=== PATIENT | male | born 1970 | race African-American/Black ===

== ENCOUNTER 2017-04-04 23:47 | Emergency (ER) | payer MEDICAID ==
[~2017-04-04] VITALS: Ht 160 cm; Wt 93.0 kg
[~2017-04-04 23:47] MED LIST: AMLO10TA80; ATEN50TA PO; BENA40TA3 PO; HYDR25TA PO
[2017-04-05] MEDS ORDERED: ACETAMINOPHEN 500MG TABLET PO ONE (06:15)
[2017-04-05] MEDS ORDERED: IBUPROFEN 400MG TABLET PO ONE (06:15)
[2017-04-05 09:15] VITALS: BP 153/89
== END 2017-04-05 10:20 | disposition home or self-care (01) ==
LOC: ER 23:47
DX: M25.431 Effusion, right wrist (principal); I10 Essential (primary) hypertension
CPT/HCPCS: 73130; 76881; 82962; 93971; 99284; Z7610

== ENCOUNTER 2017-06-12 22:48 | Emergency (ER) | payer MEDICAID ==
[~2017-06-12] VITALS: Ht 160 cm; Wt 92.4 kg
[2017-06-13] MEDS ORDERED: METHOCARBAMOL 500MG TABLET PO ONE (00:15)
[2017-06-13] MEDS ORDERED: KETOROLAC 60MG/2ML VIAL IM ONE (00:15)
[2017-06-13 00:41] LABS: CLARITY URINE CLEAR (CLEAR); COLOR URINE YELLOW (YELLOW); KETONES URINE NEGATIVE (NEGATIVE); LEUKOCYTE ESTERASE URINE NEGATIVE (NEGATIVE); NITRITE URINE NEGATIVE (NEGATIVE); OCCULT BLOOD URINE NEGATIVE (NEGATIVE); PROTEIN URINE NEGATIVE (NEGATIVE); SPECIFIC GRAVITY URINE 1.018 (1.005-1.030); UROBILINOGEN URINE 0.2 E.U./dL (0.2-1.0)
[2017-06-13] MEDS ORDERED: HYDROCODONE/ACETAMINOPHEN 10/325MG TABLET PO ONE (02:00)
[2017-06-13 02:26] VITALS: BP 134/84
== END 2017-06-13 02:30 | disposition home or self-care (01) ==
LOC: ER 06-13 00:15
DX: S39.011A Strain of muscle, fascia and tendon of abdomen, initial encounter (principal); I10 Essential (primary) hypertension; X58.XXXA Exposure to other specified factors, initial encounter; Y93.89 Activity, other specified; Y92.89 Other specified places as the place of occurrence of the external cause; Y99.8 Other external cause status
CPT/HCPCS: 71045; 81003; 96372; 99285; J1885

== ENCOUNTER 2018-04-07 18:37 | Emergency (ER) | payer MEDICAID ==
[~2018-04-07] VITALS: Ht 160 cm; Wt 94.8 kg
[~2018-04-07 18:37] MED LIST changes: -BENA40TA3 PO; +BENA40TA9 PO
[2018-04-07 23:34] LABS: CHLORIDE 100 mEq/L (98-107)
[2018-04-07 23:35] LABS: BASOPHILS % 1.3 % (0.0-2.0); EOSINOPHILS % 2.4 % (0.0-5.0); HEMATOCRIT. 43.7 % (42.0-52.0); HEMOGLOBIN. 14.3 g/dL (14.0-18.0); LYMPHOCYTES % 27.9 % (20.0-50.0); MEAN CORPUSCULAR HEMOGLOBIN 27.9 pg (28.0-32.0); MEAN CORPUSCULAR VOLUME 84.9 fL (80.0-94.0); MONOCYTES % 8.5 % (2.0-8.0); NEUTROPHILS % 59.9 % (40.0-76.0); PLATELET 179 x1000/uL (130-400); RED BLOOD CELL COUNT 5.14 mill/uL (4.7-6.1)
[2018-04-08 00:49] VITALS: BP 142/88
== END 2018-04-08 03:55 | disposition home or self-care (01) ==
LOC: ER 18:37
DX: R42 Dizziness and giddiness (principal); R79.89 Other specified abnormal findings of blood chemistry; I10 Essential (primary) hypertension
CPT/HCPCS: 36415; 84484; 93005; 99284

== ENCOUNTER 2018-08-05 21:56 | Emergency (ER) | payer MEDICAID ==
[~2018-08-05] VITALS: Ht 160 cm; Wt 91.0 kg
[2018-08-06] MEDS ORDERED: KETOROLAC 30MG/ML VIAL IM ONE (04:00)
[2018-08-06 04:42] LABS: BASOPHILS % 0.8 % (0.0-2.0); EOSINOPHILS % 4.6 % (0.0-5.0); HEMATOCRIT. 45.1 % (42.0-52.0); HEMOGLOBIN. 14.9 g/dL (14.0-18.0); LYMPHOCYTES % 31.7 % (20.0-50.0); MEAN CORPUSCULAR HEMOGLOBIN 28.2 pg (28.0-32.0); MEAN CORPUSCULAR VOLUME 85.1 fL (80.0-94.0); MONOCYTES % 12.1 % (2.0-8.0); NEUTROPHILS % 50.8 % (40.0-76.0); PLATELET 176 x1000/uL (130-400); RED CELL DISTRIBUTION WIDTH 16.1 % (11.6-14.6)
[2018-08-06 04:45] LABS: CHLORIDE 105 mEq/L (98-107)
[2018-08-06 05:35] VITALS: BP 139/83
== END 2018-08-06 06:21 | disposition home or self-care (01) ==
LOC: ER 21:56
DX: M25.531 Pain in right wrist (principal); I10 Essential (primary) hypertension; X50.1XXA Overexertion from prolonged static or awkward postures, initial encounter; Y93.84 Activity, sleeping; Y92.9 Unspecified place or not applicable
CPT/HCPCS: 29125; 36415; 73110; 80048; 84550; 85025; 96372; 99284; J1885; Z7610

== ENCOUNTER 2019-12-23 20:11 | Emergency (ER) | payer MEDICAID ==
[~2019-12-23] VITALS: Ht 160 cm; Wt 88.5 kg
[~2019-12-23 20:11] MED LIST changes: +ALBU18HF2 IH; +GLIP5TAB12 MT; +METF-416 MT
[2019-12-23] MEDS ORDERED: IBUPROFEN 600MG TABLET PO ONE (21:30)
[2019-12-23 21:39] VITALS: BP 136/88
[2019-12-23 23:06] LABS: BASOPHILS % 0.5 % (0.0-2.0); EOSINOPHILS % 4.6 % (0.0-5.0); HEMATOCRIT. 39.4 % (42.0-52.0); LYMPHOCYTES % 33.1 % (20.0-50.0); MEAN CORPUSCULAR HEMOGLOBIN 28.4 pg (28.0-32.0); MEAN CORPUSCULAR VOLUME 86.1 fL (80.0-94.0); MEAN PLATELET VOLUME 9.7 fl (7.4-10.4); MONOCYTES % 12.4 % (2.0-8.0); NEUTROPHILS % 49.4 % (40.0-76.0); PLATELET 199 x1000/uL (130-400); RED BLOOD CELL COUNT 4.58 mill/uL (4.7-6.1); RED CELL DISTRIBUTION WIDTH 17.4 % (11.6-14.6)
[2019-12-23 23:09] LABS: CHLORIDE 106 mEq/L (98-107)
== END 2019-12-24 01:07 | disposition home or self-care (01) ==
LOC: ER 20:24
DX: R07.89 Other chest pain (principal); M70.22 Olecranon bursitis, left elbow; Y93.89 Activity, other specified; I10 Essential (primary) hypertension; Z79.899 Other long term (current) drug therapy
CPT/HCPCS: 36415; 71045; 73070; 80053; 83880; 84484; 85025; 93005; 99285

== ENCOUNTER 2022-01-28 11:29 | Emergency (ER) | payer MEDICAID ==
[~2022-01-28] VITALS: Ht 162.6 cm; Wt 91.0 kg
[~2022-01-28 11:29] MED LIST changes: -BENA40TA9 PO; +BENA40TA91 PO
[2022-01-28 11:55] VITALS: BP 179/100
[2022-01-28] MEDS ORDERED: KETOROLAC 60MG/2ML VIAL IM ONE (12:45)
[2022-01-28] MEDS ORDERED: IBUP-2029 MT (14:05)
== END 2022-01-28 15:21 | disposition home or self-care (01) ==
LOC: ER 11:29
DX: M25.561 Pain in right knee (principal); I10 Essential (primary) hypertension; Z79.899 Other long term (current) drug therapy
CPT/HCPCS: 73560; 96372; 99283; J1885

== ENCOUNTER 2022-01-31 07:56 | Emergency (ER) | payer MEDICAID ==
[~2022-01-31] VITALS: Ht 165.1 cm; Wt 91.0 kg
[~2022-01-31 07:56] MED LIST changes: +IBUP-2029 MT
[2022-01-31 08:01] VITALS: BP 173/106
[2022-01-31] MEDS ORDERED: KETOROLAC 30MG/ML VIAL IV ONE (08:30)
== END 2022-01-31 10:54 | disposition home or self-care (01) ==
LOC: ER 07:56
DX: M25.561 Pain in right knee (principal); M25.461 Effusion, right knee; I10 Essential (primary) hypertension; M19.90 Unspecified osteoarthritis, unspecified site
CPT/HCPCS: 96374; 99283; J1885

== ENCOUNTER 2022-07-03 15:01 | Emergency (ER) | payer MEDICAID ==
[~2022-07-03] VITALS: Ht 160 cm; Wt 92.0 kg
[2022-07-03 15:26] VITALS: BP 153/75
== END 2022-07-03 21:16 | disposition home or self-care (01) ==
LOC: ER 15:39
DX: G44.209 Tension-type headache, unspecified, not intractable (principal); I63.89 Other cerebral infarction; I10 Essential (primary) hypertension
CPT/HCPCS: 93005; 99284